=== PATIENT | male | born 1950 | race Caucasian/White ===

== ENCOUNTER → 2016-08-12 | Outpatient (CLI) | payer MEDICARE, BC | END | disposition home or self-care (01) | LOC: PCVCCLINIC 11:20 | PROVIDERS: ATTEND Internal Medicine Cardiovascular Disease | DX: I35.0 Nonrheumatic aortic (valve) stenosis (principal); I25.10 Atherosclerotic heart disease of native coronary artery without angina pectoris; E78.00 Pure hypercholesterolemia, unspecified; I21.3 ST elevation (STEMI) myocardial infarction of unspecified site; I10 Essential (primary) hypertension; E03.9 Hypothyroidism, unspecified; K43.9 Ventral hernia without obstruction or gangrene | CPT/HCPCS: 80061; 93005; G0463 ==

== ENCOUNTER → 2017-03-09 | Outpatient (CLI) | payer MEDICARE, BC ==
--- NOTE | 2017-03-09 13:37 | PCVCIMAG ---
APPROVED REPORT Study performed: 03/09/2017 11:29:12 EXAM: Comprehensive 2D, Doppler, and color-flow Echocardiogram Patient Location: Echo lab Room #: 2Status: routine BSA: 2.28 HR: 58 bpmBP: 134/74 mmHg Rhythm: NSR Other Information Study Quality: Good Risk Factors: Cardiac Risk Factors: Hyperlipidemia Indications Aortic Valve Disease CAD 2D Dimensions LVEF(%): 60.88 (>50%) IVSd: 9.18 (7-11mm)LVOT Diam: 20.99 (18-24mm) LVDd: 55.95 mm PWd: 8.18 (7-11mm)Ascending Ao: 34.20 (22-36mm) LVDs: 37.49 (25-40mm) Left Atrium: 34.64 (27-40mm) Aortic Root: 34.97 mm LV Single Plane 4CH: 57.12 % LV Single Plane 2CH: 64.39 %Woodard's LVEF: 60.76 % Biplane EF: 61.3 % Volumes Left Atrial Volume (Systole) Single Plane 4CH: 39.32 mLSingle Plane 2CH: 76.58 mL Biplane LA Volume: 60.00 mLLA ESV Index: 26.00 mL/m2 Aortic Valve AoV Peak Aquiles.: 2.60 m/s AO Peak Gr.: 26.61 mmHgLVOT Max P.06 mmHg AO Mean Gr.: 14.43 mmHgLVOT Mean P.04 mmHg AO V2 Mean: 1.80 m/sLVOT Max V: 1.11 m/s AO V2 VTI: 64.81 cmLVOT Mean V: 0.83 m/s ASHWIN (VTI): 1.51 ma2IUOG V1 VTI: 28.30 cm ASHWIN Vmax: 1.48 cm2 SV (LVOT): 97.86 mL Mitral Valve E/A Ratio: 1.9 MV Decel. Time: 369.94 ms MV E Max Aquiles.: 0.57 m/s MV A Aquiles.: 0.30 m/s IVRT: 83.04 ms TDI E/Lateral E': 5.70E/Medial E': 9.50 Medial E' Aquiles.: 0.06 m/s Lateral E' Aquiles.: 0.10 m/s Pulmonary Valve PV Peak Aquiles.: 0.90 m/sPV Peak Gr.: 3.21 mmHg Pulmonary Vein P Vein S: 0.67 m/sP Vein A: 0.31 m/s P Vein D: 0.75 m/sP Vein A Dur.: 152.2 msec P Vein S/D Ratio: 0.89 Tricuspid Valve TR Peak Aquiles.: 2.69 m/s TR Peak Gr.: 28.88 mmHg TV Vmax: 0.56 m/sPA Pressure: 36.00 mmHg Left Ventricle The left ventricle is normal size. There is normal LV segmental wall motion. There is normal left ventricular wall thickness. Left ventricular systolic function is normal. The left ventricular ejection fraction is within the normal range. The left ventricular diastolic function is normal. Right Ventricle The right ventricle is normal size. The right ventricular systolic function is normal. Atria The left atrium size is normal. The right atrium size is normal. Aortic Valve The aortic valve is not well visualized. Aortic valve leaflets are sclerotic but open well. Aortic valve is possibly bicuspid. No aortic regurgitation is present. Mild aortic stenosis. Highest mean aortic valve gradient is 14 mmHg. Peak aortic valve gradient is 27 mmHg. Calculated ASHWIN by the continuity equation is 1.5-1.6 cm2. Mitral Valve The mitral valve is normal in structure. There is no mitral valve regurgitation noted. No evidence of mitral valve stenosis. Tricuspid Valve The tricuspid valve is normal in structure. Mild tricuspid regurgitation WITH A pa PRESSURE OF 36 MMhG. Pulmonic Valve The pulmonary valve is normal in structure. There is no pulmonic valvular regurgitation. Great Vessels The aortic root is normal in size. The ascending aorta is normal in size. IVC is normal in size and collapses with >50% inspiration Pericardium There is no pericardial effusion. There is no pleural effusion. <Conclusion> The left ventricle is normal size. Left ventricular systolic function is normal. The left ventricular ejection fraction is within the normal range. The left ventricular diastolic function is normal. The right ventricle is normal size. The left atrium size is normal. The aortic valve is not well visualized. Aortic valve leaflets are sclerotic but open well. Aortic valve is possibly bicuspid. Mild aortic stenosis. Highest mean aortic valve gradient is 14 mmHg. Peak aortic valve gradient is 27 mmHg. Calculated ASHWIN by the continuity equation is 1.5-1.6 cm2. There is no mitral valve regurgitation noted. Mild tricuspid regurgitation WITH A pa PRESSURE OF 36 MMhG. The aortic root is normal in size. There is no pericardial effusion.
== END | disposition home or self-care (01) ==
LOC: PCVCIMAG 11:30
PROVIDERS: ATTEND Internal Medicine Cardiovascular Disease
DX: I08.2 Rheumatic disorders of both aortic and tricuspid valves (principal); I10 Essential (primary) hypertension; E78.00 Pure hypercholesterolemia, unspecified; I82.409 Acute embolism and thrombosis of unspecified deep veins of unspecified lower extremity; I26.99 Other pulmonary embolism without acute cor pulmonale; R00.1 Bradycardia, unspecified; Z87.891 Personal history of nicotine dependence; Z79.899 Other long term (current) drug therapy
CPT/HCPCS: 80061; 93005; 93306; G0463

== ENCOUNTER → 2017-09-13 | Outpatient (CLI) | payer MEDICARE, BC | END | disposition home or self-care (01) | LOC: PCVCIMAG 11:16 | DX: I35.0 Nonrheumatic aortic (valve) stenosis (principal); I10 Essential (primary) hypertension; E78.00 Pure hypercholesterolemia, unspecified | CPT/HCPCS: 93325; 93351 ==

== ENCOUNTER → 2018-08-15 | Outpatient (CLI) | payer MEDICARE, BC | END | disposition home or self-care (01) | LOC: PCVCCLINIC 15:09 | PROVIDERS: ATTEND Internal Medicine Cardiovascular Disease | DX: I10 Essential (primary) hypertension (principal); E78.00 Pure hypercholesterolemia, unspecified; I35.0 Nonrheumatic aortic (valve) stenosis; I82.409 Acute embolism and thrombosis of unspecified deep veins of unspecified lower extremity; I26.99 Other pulmonary embolism without acute cor pulmonale; D68.59 Other primary thrombophilia; E03.9 Hypothyroidism, unspecified; Z88.8 Allergy status to other drugs, medicaments and biological substances; Z87.891 Personal history of nicotine dependence | CPT/HCPCS: 36415; 80061; 93005; G0463 ==

== ENCOUNTER → 2019-03-12 | Outpatient (CLI) | payer MEDICARE, BC ==
--- NOTE | 2019-03-12 14:41 | PCVCIMAG ---
APPROVED REPORT Study performed: 03/12/2019 13:46:08 Exam: Stress Echocardiogram Indication: elevated coronary calcium score- 950, mild aortic stenosis, htn, hlp, hx pulmonary embolism Patient Location: Echo lab Stress Nurse: Mirta Russo RN Status: routine Ht: 5 ft 11 in HR: 68 bpm BP: 168/84 mmHg Rhythm: NSR Procedure The patient underwent an Exercise Stress Test using the Darnell Protocol. Blood pressure, heart rate, and EKG were monitored. An Echocardiogram was performed by spray technician in four stages in quad fashion. At peak stress, four selected images were obtained and placed side by side with resting images for comparison. Stress Test Details Stress Test: Exercise stress testing was performed using a Darnell protocol. HR Resting HR: 68 bpmMax Heart Rate (APMHR): 149 bpm Max HR Achieved: 142 bpmTarget HR (85% APMHR): 126 bpm % of APMHR: 95 Recovery HR: 92 bpm HR response to stress: Normal HR response to stress BP Resting BP: 168/84 mmHg Max BP: 186/82 mmHg Recovery BP: 172/78 mmHg BP response to stress: Normal blood pressure response to stress. ECG Resting ECG: Sinus Rhythm Stress ECG: Sinus Rhythm ST Change: Normal Arrhythmia: None Recovery ECG: Sinus Rhythm Recovery ST Change: Normal Recovery Arrhythmia: None Clinical Reason for Termination: Maximal effort Stress Symptoms: Dyspnea Exercise duration: 7 min 17 sec Highest Stage Achieved: Stage 3: 3.4 mph at 14% grade. Exercise capacity: 10.1 METs Overall Exercise Capacity for Age: Normal Scale: Sedentary Angina Score: None Pre-Stress Echo The resting Echocardiogram showed normal left ventricular contractility with an estimated Ejection Fraction of about 50-55%. The resting echocardiogram demonstrated normal wall motion in all wall segments. Post-Stress Echo The stress Echocardiogram showed normal left ventricular contractility with an estimated Ejection Fraction of about 65%. Compared to rest, there were no stress-induced wall motion abnormalities. Clinical No clinical or ECG evidence for ischemia. Conclusion Clinical Response: Non-ischemic Exercise Capacity: Average Stress ECG Response: Non-ischemic Stress Echo Images: Non-ischemic The left ventricle is normal in size and moderate LVH in both the rest and stress images. Moderate aortic sclerosis with mild aortic stenosis with ASHWIN of 1.3 cm2 (mean gradient-17 mmHg peak gradient 33 mmHg). Mild mitral regurgitation, no tricuspid regurgitation present but right side appears normal. Normal pulmonic valve. Other Information Study Quality: Adequate <Conclusion> The left ventricle is normal in size and moderate LVH in both the rest and stress images. Moderate aortic sclerosis with mild aortic stenosis with ASHWIN of 1.3 cm2 (mean gradient-17 mmHg peak gradient 33 mmHg). Mild mitral regurgitation, no tricuspid regurgitation present but right side appears normal. Normal pulmonic valve.
== END | disposition home or self-care (01) ==
LOC: PCVCIMAG 14:07
PROVIDERS: ATTEND Internal Medicine Cardiovascular Disease
DX: I08.0 Rheumatic disorders of both mitral and aortic valves (principal); I25.10 Atherosclerotic heart disease of native coronary artery without angina pectoris; I10 Essential (primary) hypertension; E78.00 Pure hypercholesterolemia, unspecified; E89.0 Postprocedural hypothyroidism; Z90.09 Acquired absence of other part of head and neck; Z82.49 Family history of ischemic heart disease and other diseases of the circulatory system; Z87.891 Personal history of nicotine dependence; Z88.1 Allergy status to other antibiotic agents; Z88.8 Allergy status to other drugs, medicaments and biological substances
CPT/HCPCS: 36415; 80061; 93325; 93351; G0463; 93005